=== PATIENT | female | born 1950 ===

== ENCOUNTER 2021-04-22 10:15 | Inpatient (IN) | payer OTHER ==
[~2021-04-22] VITALS: Ht 162.6 cm; Wt 90.7 kg
[2021-04-22] MEDS ORDERED: CYMBALTA60 MG PO (15:24)
[2021-04-22] MEDS ORDERED: ARMOUR THYROID90 MG PO (15:24)
== END 2021-04-27 11:50 | disposition home or self-care (01) | DRG 735 ==
LOC: O/R 04-25 05:35 → OB/GYN 04-25 05:35 → SURH 04-25 07:00 → OB/GYN 04-25 12:17
PROVIDERS: ADMIT Specialist; ATTEND Specialist
PROC: 07TC4ZZ Resection of Pelvis Lymphatic, Percutaneous Endoscopic Approach (ICD-10-PCS; 2021-04-25)
PROC: 0UT74ZZ Resection of Bilateral Fallopian Tubes, Percutaneous Endoscopic Approach (ICD-10-PCS; 2021-04-25)
PROC: 0UT24ZZ Resection of Bilateral Ovaries, Percutaneous Endoscopic Approach (ICD-10-PCS; 2021-04-25)
PROC: 3E1M38Z Irrigation of Peritoneal Cavity using Irrigating Substance, Percutaneous Approach (ICD-10-PCS; 2021-04-25)
PROC: 0UT94ZZ Resection of Uterus, Percutaneous Endoscopic Approach (ICD-10-PCS; principal; 2021-04-25 07:00)
DX: C54.1 Malignant neoplasm of endometrium (principal); Z20.822 Contact with and (suspected) exposure to COVID-19